=== PATIENT | female | born 1940 | race Caucasian/White ===

== ENCOUNTER 2016-08-21 11:17 | Emergency (ER) | payer MEDICARE ==
[~2016-08-21] VITALS: Ht 172.7 cm; Wt 90.9 kg
[~2016-08-21 11:17] MED LIST: CALC-975 PO; LOSA1TAB70 PO; METO-272 PO
[2016-08-21 11:24] VITALS: BP 163/94; PULSE 79; RESP 16; O2SAT 96
[2016-08-21 11:59] LABS: BASOPHILS % (AUTO) 0.2 % (0-3); EOSINOPHILS % (AUTO) 0.8 % (0-5); MONOCYTES % (AUTO) 5.4 % (4-12); Mean Corpuscular Hemoglobin 28.2 pg (27.0-35.0); Mean Corpuscular Volume 88.2 fL (81-100); Platelet Count 195 bil/L (150-400)
[2016-08-21 12:36] LABS: Magnesium 2.1 mg/dL (1.6-2.6)
[2016-08-21 12:37] LABS: TROPONIN T < 0.010 ug/L (0.0-0.011)
--- NOTE | 2016-08-21 14:20 | ED.REPORT ---
HPI-General Illness Date of Service Aug 21, 2016 ED Provider: Kelby Downs MD Pt is a 76 y/o female w/ a hx of HTN, B-cell lymphoproliferative disorder followed by oncologist Audi Mcghee, presenting to the ED with multiple vague medical complaints. Pt reports that for 6 weeks, she has been experiencing waxing and waning lower abdominal cramping lasting hours which is mildly exacerbated by eating. Her pain at worst is 8/10 and at time of interview is resolved. Her pain is similar to menstruation although she is post-menopausal. She also notes some generalized weakness with diffuse mild numbness/tingling throughout her entire body. She used to be able to walk 2 blocks without problem but recently she has been fatigued after walking around her house. She experienced 3 very short episodes (lasting seconds) of sharp chest pain yesterday. She has also had 4 days of intermittent vague lightheadedness/ dizziness. She c/o intermittent nausea and constipation for months. She denies fever, recent weight loss, cough, SOB, diaphoresis, edema. She notes a vague reaction to oral contrast in the past. CT w/ IV contrast taken June 2016 showed no signs of adverse reaction. Nursing Notes Stated Complaint: WEAKNESS Chief Complaint: Neuro Symptoms/ Deficits Nursing Notes Reviewed: Yes (Viveve, Viva Dengis not reconciled) Allergies: Coded Allergies: Cephalosporins (Verified Allergy, Unknown, HEMATURIA, 08/21/16) amlodipine (Verified Allergy, Unknown, AGITATION, 08/21/16) amoxicillin (Verified Allergy, Unknown, 08/21/16) levofloxacin (Verified Allergy, Unknown, MUSCLE ACHES, 08/21/16) spironolactone (Verified Allergy, Unknown, 08/21/16) sulfamethoxazole (Unverified Allergy, Unknown, MUSCLE ACHES, 08/21/16) trimethoprim (Unverified Allergy, Unknown, MUSCLE ACHES, 08/21/16) Uncoded Allergies: CHOLESTERAL LOWERING DRUGS (Allergy, Unknown, 06/12/16) CLAIRTHROMYCIN (Allergy, Unknown, HALLUCINATIONS, 06/12/16) ENALAPRIL (Allergy, Unknown, 06/12/16) IODINE (Allergy, Unknown, 08/21/16) QUESTIONED PATIENT ABOUT CONTRAST ALLERGY WHILE SHE WAS IN THE ER. PATIENT STATED SHE HAD SEVERE PAIN ON THE BOTTOM OF HER FEET AND UNABLE TO WALK FOR 3 DAYS[address] WITH RADIOLOGIST DR[address] ORTEGA AND STATED THIS DOES NOT SOUND LIKE A CONTRAST ALLERGY. PATIENT DOES NOT NEED TO BE PRE TREATED. METRONIDSZOLE (Allergy, Unknown, 06/12/16) Scheduled Calcium Carbonate/Vitamin D3 (Calcium 600 + Vit D3 Caplet) 600 Mg-800 Tablet 1 EACH PO DAILY 630MG/500IU Losartan/HCTZ 100-25 mg (Losartan/HCTZ 100-25 mg) 1 Each Tablet 1 TABLET PO DAILY Metoprolol Succinate ER (Metoprolol Succinate ER) 50 Mg Tab.er.24h 75 MG PO DAILY General Time Seen by MD: 13:49 Chief Complaint Multip medical complaints Hx Obtained From: Patient Arrived By: Walk-in Sudden in Onset?: No Onset Occurred: More than a week ago... 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 Past Medical History B cell lymphoproliferative disorder Hypertension History of tachybradycardia syndrome Osteoporosis Past Surgical History Pacemaker 2012 Breast implant removed in 2009 Cataract surgeries Smoking History Never Smoker Social History Alcohol Use: Denies alcohol use Drug Use: Denies drug use Review of Systems Full Review of Systems Constitutional: Reports: Weakness - generalized, Denies: Chills, Fever, Recent wt loss Respiratory: Denies: Dyspnea on exertion, Non-productive cough, Shortness of breath Cardiovascular: Reports: Chest pain, Denies: Edema GI: Reports: Abdominal pain, Constipation, Nausea, Denies: Diarrhea Skin: Denies Diaphoresis Neurologic: Reports: Dizziness, Lightheaded, Numbness (diffuse), Denies: Focal weakness, Slurred speech, Unable to speak, Vision change Complete sys rev & neg: except as marked. Physical Exam Vital Signs Vital Signs Date Time Temp Pulse Resp B/P Pulse Ox O2 Delivery O2 Flow Rate FiO2 08/21/16 17:11 36.8 68 16 140/69 97 Room Air 08/21/16 11:24 36.3 79 16 163/94 96 Room Air Initial VS: Reviewed, Vital signs normal (mild HTN) Head / Eyes: Atraumatic, Normocephalic, PERRL ENT: Mucous membranes moist, Conjunctiva normal, No scleral icterus Neck: Supple, Full range of motion Respiratory: Breath sounds normal, Clear to auscultation, No respiratory distress Cardiovascular: Regular rate & rhythm, Heart sounds normal, Intact distal pulses Lymphatic: No lymphadenopathy Extremities: Vascular intact, Neuro intact, No swelling, No tenderness Skin: Warm, Dry, No cyanosis Psychiatric: Mood/affect normal, Behavior normal, Normal thought content General/Constitutional: Awake, Alert, No acute distress, Well appearing, Cooperative, Not toxic appearing Appears mildly tired but not severely fatigued Abdomen: Atraumatic, Soft, Non-tender, McBurney's non-tender, No guarding, No rebound, BS normoactive, No distention, No palpable mass, No pulsatile mass Neurologic: Oriented X3, Speech NL, No motor deficits, No sensory deficits, CN II - XII intact, Cerebellar NL, Memory NL Interpretation & Diagnostics Lab Results Interpretation Result Diagram: 08/21/16 1146 08/21/16 1146 Test 08/21/16 11:46 White Blood Count 8.5th/mm3 (3.8-10.1) Red Blood Count 4.22mil/mm3 (3.90-5.20) Hemoglobin 11.9g/dL (12.0-15.6) Hematocrit 37.2% (35.0-46.0) Mean Corpuscular Volume 88.2fL (81-100) Mean Corpuscular Hemoglobin 28.2pg (27.0-35.0) Mean Corpuscular Hemoglobin Concent 32.0% (32.0-37.0) Red Cell Distribution Width 14.0% (12.3-15.4) Platelet Count 195bil/L (150-400) Neutrophils (%) (Auto) 43.0% (40-74) Lymphocytes (%) (Auto) 50.5% (14-46) Monocytes (%) (Auto) 5.4% (4-12) Eosinophils (%) (Auto) 0.8% (0-5) Basophils (%) (Auto) 0.2% (0-3) Sodium Level 140mEq/L (134-144) Potassium Level 3.9mEq/L (3.5-5.2) Chloride Level 97mEq/L (97-108) Carbon Dioxide Level 29mmol/L (18-29) Blood Urea Nitrogen 26mg/dL (8-27) Creatinine 1.21mg/dL (0.57-1.00) Estimat Glomerular Filtration Rate 62mL/min (>59) Glucose Level 102mg/dL (60-99) Calcium Level 9.6mg/dL (8.5-10.1) Magnesium Level 2.1mg/dL (1.6-2.6) Total Bilirubin 0.4mg/dL (0.0-1.2) Aspartate Amino Transf (AST/SGOT) 16U/L (0-50) Alanine Aminotransferase (ALT/SGPT) 10U/L (0-32) Alkaline Phosphatase 89U/L (25-165) Troponin T < 0.010ug/L (0.0-0.011) Total Protein 6.9g/dL (6.4-8.4) Albumin 3.8g/dL (3.4-5.0) Hold Braden Top Tube Received (Received) Lab Results Interpretation: CBC normal CMP normal Troponin negative CT Abd / Pelvis Interpretation IMPRESSION: 1. Stable interval exam compared to 06/18/16. No visualized acute abdominal or pelvic process. Dictated by: Tana Ortega M.D. on 08/21/2016 at 15:48 Approved by: Tana Ortega M.D. on 08/21/2016 at 15:48 Study type: Abdominal CT IV contrast Interpretation / Wet Read by: Interpret - Radiologist Re-Eval/Medical Decision Med Decision/Clinical Course This is a 76-year-old female presents with progressive generalized fatigue with marked decrease in energy, and daily recurrent lower abdominal cramping that has also been worsening in recent weeks. This been a weight gain, none loss. No definite fever. She is no prior history of similar symptoms. Denies nausea vomiting. She denies dysuria. On exam she is fatigued, but not in excess. Abdomen is soft and nontender. Vitals are normal. Labs are normal. However given patient's age, with duration of abdominal discomfort, CT imaging was pursued. She claims an intolerance of oral contrast, and so agreed to IV contrast, which she had no difficulties with at this time. However CT imaging was negative for visible for pathology. I have explained and I have not been able to determine a clear-cut cause the patient's symptoms. She has normal vitals, she does appear fatigued but she is able to ambulate and do activities. I am not finding indication that acute hospitalization is indicated. I have recommended close follow-up with PCP, and given the duration of abdominal symptoms she described, GI consultation and possible colonoscopy may be considered. Routine precautions are reviewed with both patient and the family. Patient is discharge ambulatory in stable condition. Source of Hx: Old records Differential Diagnosis: Positive: Abdominal pain, Negative: Allergies, Fracture, Malingering, Medication refill, Neutropenia, Pneumonia Counseled Regarding: Diagnosis, Lab results, Need for follow-up, When/why to return to ED Discharge & Departure Primary Impression: Abdominal pain Abdominal location: lower abdomen Qualified Code: R10.30 - Lower abdominal pain, unspecified Additional Impression: Fatigue Fatigue type: unspecified Qualified Code: R53.83 - Other fatigue Disposition: Home Discharge Condition All VS Reviewed: Yes Condition: Stable Referrals: Kimberly Penaloza MD (PCP) Scribe Attestation Portions of this note were transcribed by Joe Whitmore. I, Dr. Downs personally performed the history, physical exam and medical decision-making; I reviewed and confirmed the accuracy of the information in the transcribed note. Signed by Seferino Kim, 08/21/16 - 1500 copies to: Kimberly Penaloza MD, Matthew F MD Aug 21, 2016 14:19 JOE WHITMORE Aug 21, 2016 14:59
--- NOTE | 2016-08-21 15:49 | DRSVH ---
PROCEDURE: CT ABDOMEN AND PELVIS WITH CONTRAST ([id number]) INDICATIONS: Abd pain TECHNIQUE: After the administration of intravenous contrast, 5 mm thick sections acquired from the diaphragm to the symphysis. 5 mm coronal and sagittal reformats were acquired. For radiation dose reduction, the following was used: automated exposure control, adjustment of mA and/or kV according to patient monet smyth. COMPARISON: [facility], CT, CT NECK CHEST ABD PELVIS W CON, 06/18/2016, 14:25. FINDINGS: Image quality: Excellent. ABDOMEN: Lung bases: Lung bases are clear. Heart size is normal. Solid organs: Liver and spleen are normal in size and enhancement. Gallbladder is unremarkable. Bi liary system is non dilated. Pancreas enhances normally. No adrenal nodules. Kidneys there is asym metric left renal atrophy, unchanged. Peritoneum and bowel: Bowel loops demonstrate normal wall thickness and caliber. No free fluid or a ir. Appendix is unremarkable. Nodes and vessels: No retroperitoneal or mesenteric adenopathy by size criteria. As noted on previou s exam, multiple sub-centimeter lymph nodes are present, unchanged. Aorta and inferior vena cava are normal in size. Miscellaneous: No ventral hernias. PELVIS: Genitourinary: Bladder wall thickness is normal. Miscellaneous: No inguinal hernias or adenopathy. Unchanged left ileus psoas bursal fluid collection is identified. Bones: No suspicious bony lesions. No vertebral body compression fractures. IMPRESSION: 1. Stable interval exam compared to 06/18/16. No visualized acute abdominal or pelvic process. Dictated by: Tana Ortega M.D. on 08/21/2016 at 15:48 Approved by: Tana Ortega M.D. on 08/21/2016 at 15:48
[2016-08-21 17:11] VITALS: BP 140/69; PULSE 68; RESP 16; O2SAT 97
[2016-08-21 19:19] VITALS: BP 138/64; PULSE 68; RESP 16; O2SAT 100
== END 2016-08-21 19:19 | disposition home or self-care (01) ==
LOC: SED 11:17
DX: R10.30 Lower abdominal pain, unspecified (principal); R53.83 Other fatigue; I10 Essential (primary) hypertension; C83.80 Other non-follicular lymphoma, unspecified site; Z95.0 Presence of cardiac pacemaker; Z88.0 Allergy status to penicillin; Z88.1 Allergy status to other antibiotic agents; Z88.2 Allergy status to sulfonamides; Z88.8 Allergy status to other drugs, medicaments and biological substances
CPT/HCPCS: 36415; 74177; 80053; 83735; 84484; 85025; 93005; 99284; Q9967

== ENCOUNTER 2016-08-23 06:25 | Emergency (ER) | payer MEDICARE ==
[~2016-08-23] VITALS: Ht 172.7 cm; Wt 90.1 kg
[2016-08-23 06:28] VITALS: BP 121/53; PULSE 78; RESP 18; O2SAT 94
--- NOTE | 2016-08-23 06:32 | ED.REPORT ---
HPI-Abd Pain F 40 and Over Date of Service Aug 23, 2016 ED Provider: Natalie Gorge 76 year old female with a history of B cell lymphoproliferative disorder presents to the ER via EMS complaining of three weeks of cramping lower abdominal pain and generalized weakness. Pain radiates into her back. She also reports severe pain preceding every bowel movement. Associated symptom of constipation. Patient denies diarrhea, vomiting, dysuria, bloody stool, bowel incontinence, dysphagia, trouble chewing, double vision, perineal numbness, and other urinary tract symptoms. She was seen by her primary care provider three days ago and had a near syncopal episode, and was subsequently referred here to the ER. Nursing Notes Stated Complaint: GLF Chief Complaint: Female Abdominal Pain Nursing Notes Reviewed: Yes Allergies: Coded Allergies: Cephalosporins (Verified Allergy, Unknown, HEMATURIA, 08/23/16) amlodipine (Verified Allergy, Unknown, AGITATION, 08/23/16) amoxicillin (Verified Allergy, Unknown, 08/23/16) levofloxacin (Verified Allergy, Unknown, MUSCLE ACHES, 08/23/16) spironolactone (Verified Allergy, Unknown, 08/23/16) sulfamethoxazole (Unverified Allergy, Unknown, MUSCLE ACHES, 08/23/16) trimethoprim (Unverified Allergy, Unknown, MUSCLE ACHES, 08/23/16) Uncoded Allergies: CHOLESTERAL LOWERING DRUGS (Allergy, Unknown, 06/12/16) CLAIRTHROMYCIN (Allergy, Unknown, HALLUCINATIONS, 06/12/16) ENALAPRIL (Allergy, Unknown, 06/12/16) IODINE (Allergy, Unknown, 08/21/16) QUESTIONED PATIENT ABOUT CONTRAST ALLERGY WHILE SHE WAS IN THE ER. PATIENT STATED SHE HAD SEVERE PAIN ON THE BOTTOM OF HER FEET AND UNABLE TO WALK FOR 3 DAYS. SPOKE WITH RADIOLOGIST DR[address] SIMMONS AND STATED THIS DOES NOT SOUND LIKE A CONTRAST ALLERGY. PATIENT DOES NOT NEED TO BE PRE TREATED. METRONIDSZOLE (Allergy, Unknown, 06/12/16) Scheduled Calcium Carbonate/Vitamin D3 (Calcium 600 + Vit D3 Caplet) 600 Mg-800 Tablet 1 EACH PO DAILY 630MG/500IU Losartan/HCTZ 100-25 mg (Losartan/HCTZ 100-25 mg) 1 Each Tablet 1 TABLET PO DAILY Metoprolol Succinate ER (Metoprolol Succinate ER) 50 Mg Tab.er.24h 75 MG PO DAILY General Time Seen by MD: 06:31 Chief Complaint Abdominal pain Hx Obtained From: Patient Arrived By: Ambulance Sudden in Onset?: No Onset Occurred: More than a week ago... 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 Past Medical History B cell lymphoproliferative disorder Hypertension History of tachybradycardia syndrome Osteoporosis Past Surgical History Pacemaker 2012 Breast implant removed in 2009 Cataract surgeries Smoking History Never Smoker Social History Alcohol Use: Denies alcohol use Drug Use: Denies drug use Review of Systems Denies trouble chewing Constitutional: Reports: Weakness - generalized, Denies: Chills, Fever Respiratory: Denies: Non-productive cough, Shortness of breath Cardiovascular: Denies: Chest pain GI: Reports: Abdominal pain, Constipation, Nausea, Denies: Bloody/tarry stool, Diarrhea, Dysphagia, Hematochezia, Vomiting Female: Denies: Dysuria, Flank pain, Hematuria, Incontinence, Urinary frequency, Urinary urgency Musculoskeletal: Reports: Back pain Complete sys rev & neg: except as marked. Eyes: Denies: Diplopia Neurologic: Reports: Weakness, Denies: Bladder dysfunction, Bowel dysfunction, Numbness, Vision change Physical Exam Vital Signs Vital Signs (First) Date Time Temp Pulse Resp B/P Pulse Ox O2 Delivery O2 Flow Rate FiO2 08/23/16 06:28 36.6 78 18 121/53 94 Room Air Initial VS: Reviewed Head / Eyes: Atraumatic, Normocephalic Neck: Supple, Non-tender, Full range of motion Extremities: Vascular intact, Neuro intact, No swelling, No tenderness Skin: Warm, Dry, No cyanosis Neurologic: Alert, Oriented, Nonfocal General/Constitutional: Awake, Alert, Well developed, Well nourished Distress / Hydration: Positive: Distress mild Respiratory / Chest: Breath sounds NL, Breath sounds = bilat, No respiratory distress, No rales, No rhonchi, No wheezing, No stridor Cardiovascular: Heart rate NL, Regular rhythm, Heart sounds NL, Peripheral circulation NL Abdomen: Soft, Non-tender, McBurney's non-tender, No guarding, No rebound, BS normoactive, No distention, No hernia, No palpable mass, No pulsatile mass Back: Inspection NL, Non-tender, No CVA tenderness Interpretation & Diagnostics Lab Results Interpretation Result Diagram: 08/23/16 0645 08/23/16 0725 Test 08/23/16 06:45 08/23/16 07:25 White Blood Count 8.6th/mm3 (3.8-10.1) Red Blood Count 4.20mil/mm3 (3.90-5.20) Hemoglobin 11.8g/dL (12.0-15.6) Hematocrit 37.2% (35.0-46.0) Mean Corpuscular Volume 88.6fL (81-100) Mean Corpuscular Hemoglobin 28.1pg (27.0-35.0) Mean Corpuscular Hemoglobin Concent 31.7% (32.0-37.0) Red Cell Distribution Width 14.3% (12.3-15.4) Platelet Count 190bil/L (150-400) Neutrophils (%) (Auto) 48.2% (40-74) Lymphocytes (%) (Auto) 45.7% (14-46) Monocytes (%) (Auto) 4.9% (4-12) Eosinophils (%) (Auto) 0.9% (0-5) Basophils (%) (Auto) 0.2% (0-3) Lactic Acid Level 1.2mmol/L (0.4-2.0) Sodium Level 141mEq/L (134-144) Potassium Level 3.5mEq/L (3.5-5.2) Chloride Level 100mEq/L (97-108) Carbon Dioxide Level 24mmol/L (18-29) Blood Urea Nitrogen 28mg/dL (8-27) Creatinine 1.18mg/dL (0.57-1.00) Estimat Glomerular Filtration Rate 63mL/min (>59) Glucose Level 112mg/dL (60-99) Calcium Level 9.2mg/dL (8.5-10.1) Magnesium Level 2.0mg/dL (1.6-2.6) Total Bilirubin 0.4mg/dL (0.0-1.2) Aspartate Amino Transf (AST/SGOT) 14U/L (0-50) Alanine Aminotransferase (ALT/SGPT) 8U/L (0-32) Alkaline Phosphatase 82U/L (25-165) Troponin T < 0.010ug/L (0.0-0.011) Total Protein 6.5g/dL (6.4-8.4) Albumin 3.8g/dL (3.4-5.0) Lipase 56U/L (13-60) Thyroid Stimulating Hormone (TSH) 4.430uIU/mL (0.450-4.500) ECG Interpretation ECG Interpretation: Sinus rhythm, rate 65 Unchanged from prior ECG 08/21/2016 Time: 07:46 Interpreted by: ED physician X-Ray Abdominal Interpretation IMPRESSION: No imaging explanation is found for this patient's presenting history of abdominal pain. The bowel gas pattern is nonobstructive. Postoperative and degenerative changes are seen. Dictated by: Vargas Gomez M.D. on 08/23/2016 at 8:58 Approved by: Vargas Gomez M.D. on 08/23/2016 at 8:58 Study: 2 view Interpretation / Wet Read by: Interpret - Radiologist Re-Eval/Medical Decision Med Decision/Clinical Course Nonspecific abdominal pain, serially on exam the patient has no focal rebound guarding or tenderness and her symptoms seem to be pain presenting a bowel movement. It does look like she has moderate stool retention and evidence of constipation on abdominal series. Labs today are similarly unremarkable and CAT scan a few days ago was normal. Troponin and TSH are ordered for alternative causes for weakness. Patient is ambulatory at a normal baseline after a liter of normal saline she will be discharged. Milk of magnesia is recommended. Return precautions given. Source of Hx: Old records Re-Evaluation/Progress #1: Time of Eval: 10:20 Re-Evaluation/Progress Note: Patient feels weak. Updated her on the plan of care. Re-Evaluation/Progress #2: Time of Eval: 11:03 Re-Evaluation/Progress Note: Patient passed road test. Discussed plan to discharge. Patient is amenable to the plan. Return precautions given. All other questions addressed. Counseled Regarding: Diagnosis, Lab results, Need for follow-up, When/why to return to ED Discharge & Departure Primary Impression: Pain, abdominal, nonspecific Disposition: Home Discharge Condition All VS Reviewed: Yes Condition: Stable Patient Instructions: Acute Abdominal Pain (ED) Additional Instructions: Overall there does not seem to be a life-threatening cause for your abdominal pain and weakness. Your x-rays are suggestive of some constipation. Use milk of magnesia is [id number], 30 mL's orally twice daily. You may increase this as needed to have a soft bowel movement daily. Follow-up with your regular doctor for further evaluation. Return to ER as needed if you have severe uncontrolled pain, high fever, persistent vomiting, or other concerns. Referrals: Kimberly Penaloza MD (PCP) Scribe Attestation Portions of this note were transcribed by Adan Elias. I, Dr. Estrada, personally performed the history, physical exam and medical decision-making; I reviewed and confirmed the accuracy of the information in the transcribed note. Signed by: Seferino Bolivar, 08/23/2016 and 11:10 copies to: Kimberly Penaloza MD,Gorge Short DO Aug 23, 2016 06:31 ADAN ELIAS Aug 23, 2016 07:05
[2016-08-23] MEDS ORDERED: 0.9% Sodium Chloride 1,000 ML IV ONE (07:06)
[2016-08-23] MEDS ORDERED: Ondansetron 2 mg/mL 2 mL Inj IVPUSH PRN (07:10)
[2016-08-23 07:19] LABS: BASOPHILS % (AUTO) 0.2 % (0-3); EOSINOPHILS % (AUTO) 0.9 % (0-5); MONOCYTES % (AUTO) 4.9 % (4-12); Mean Corpuscular Hemoglobin 28.1 pg (27.0-35.0); Mean Corpuscular Volume 88.6 fL (81-100); NEUTROPHILS % (AUTO) 48.2 % (40-74); Platelet Count 190 bil/L (150-400)
--- NOTE | 2016-08-23 10:00 | DRSVH ---
PROCEDURE: X-RAY ACUTE ABDOMINAL SERIES ([id number]) INDICATIONS: abd pain TECHNIQUE: One view chest and two views of the abdomen were acquired. COMPARISON: [facility], CT, CT NECK CHEST ABD PELVIS W CON, 06/18/2016, 14:25. [facility], CT, CT ABD PELVIS W CON, 08/21/2016, 15:33. FINDINGS: Surgical changes and devices: A pacer device is seen. Chest: Lungs are clear. Heart size is normal. No pleural effusions. No pneumoperitoneum. Abdomen: Bowel gas pattern is normal. No suspicious calcifications. Visualized solid organ contour s appear normal. Bones: No suspicious bony lesions. Age-appropriate bony degenerative changes are seen. IMPRESSION: No imaging explanation is found for this patient's presenting history of abdominal pain. The bowel gas pattern is nonobstructive. Postoperative and degenerative changes are seen. Dictated by: Vargas Gomez M.D. on 08/23/2016 at 8:58 Approved by: Vargas Gomez M.D. on 08/23/2016 at 8:58
[2016-08-23 11:09] VITALS: BP 150/61; PULSE 67; RESP 15; O2SAT 97
== END 2016-08-23 11:20 | disposition home or self-care (01) ==
LOC: EDBD 06:25 → SED 06:25
DX: R10.30 Lower abdominal pain, unspecified (principal); I10 Essential (primary) hypertension; Z95.0 Presence of cardiac pacemaker; Z88.1 Allergy status to other antibiotic agents; Z88.2 Allergy status to sulfonamides; Z88.8 Allergy status to other drugs, medicaments and biological substances
CPT/HCPCS: 36415; 74022; 80053; 83605; 83690; 83735; 84443; 84484; 85025; 93005; 96361; 96374; 96375; 99285; J2270; J2405; J7030